=== PATIENT | female | born 1990 | race American Indian/Alaskan Native ===

== ENCOUNTER 2017-08-08 21:21 | Emergency (ER) | payer SELFPAY ==
--- NOTE | 2017-08-09 03:41 | Emergency Department Report ---
ED Lower Extremity HPI - General Chief Complaint: Extremity Injury, Lower Stated Complaint: LT FOOT INJURY Time Seen by Provider: 08/09/17 03:40 Source: patient Mode of arrival: Ambulatory Limitations: No Limitations - History of Present Illness Initial Comments: Patient here on triage note it said that patient was complaining of left hammertoe. Patient says she did not complain of hammertoe she is just having severe pain for over 2 months beneath her left big toe and sometimes on the lateral big toe. She said the pain is been on and off for since she wear shoes pain is 8 out of 10 and has been taking [id number] pain medication and does not help. Patient denies any redness or injury to left foot. She said the pain feels like burning pain. She has not followed up with her doctor regarding this issue which has been going on for 2 months. She denies any numbness or tingling to her extremities. MD Complaint: other (patient complaining of left foot pain beneath her left great toe and along side her left great toe) Onset/Timin -: month(s) Injury: Foot: Left (pain) Type of Injury: unknown Place: home Severity: severe Severity scale (0 -10): 8 Improves With: immobilization, rest Worsens With: weight bearing Context: other (unknown) Associated Symptoms: ambulatory. denies: snap/pop sensation, swelling, numbness , tingling Treatments Prior to Arrival: NSAIDS - Related Data Previous Rx's Medication Instructions Recorded Last Taken Type HYDROcodone/APAP 5-325 [[place] 1 each PO Q6HR PRN #15 tablet 02/20/14 Unknown Rx 5/325 mg] Ibuprofen [Motrin] 600 mg PO Q8H PRN #50 tablet 02/20/14 Unknown Rx LORazepam [Ativan] 1 mg PO QHS PRN #15 tab 02/20/14 Unknown Rx Naproxen [Naprosyn] 500 mg PO BID PRN 6 Days #12 tablet 08/09/17 Unknown Rx Allergies Allergy/AdvReac Type Severity Reaction Status Date / Time No Known Allergies Allergy Verified 07/20/13 02:44 ED Review of Systems ROS: Stated complaint: LT FOOT INJURY Other details as noted in HPI Comment: All other systems reviewed and negative Constitutional: no symptoms reported Respiratory: no symptoms reported Cardiovascular: denies: chest pain, palpitations, dyspnea on exertion, edema, syncope Gastrointestinal: denies: abdominal pain, nausea, vomiting Musculoskeletal: arthralgia. 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 - Family History Family history: no significant - Social History Smoking Status: Never Smoker Substance Use Type: Alcohol - Medications Home Medications: Home Medications Medication Instructions Recorded Confirmed Last Taken Type HYDROcodone/APAP 5-325 [[place] 1 each PO Q6HR PRN #15 tablet 02/20/14 Unknown Rx 5/325 mg] Ibuprofen [Motrin] 600 mg PO Q8H PRN #50 tablet 02/20/14 Unknown Rx LORazepam [Ativan] 1 mg PO QHS PRN #15 tab 02/20/14 Unknown Rx Naproxen [Naprosyn] 500 mg PO BID PRN 6 Days #12 tablet 08/09/17 Unknown Rx ED Physical Exam - General Limitations: No Limitations General appearance: alert, in no apparent distress - Head Head exam: Present: atraumatic, normocephalic, normal inspection - Eye Eye exam: Present: normal appearance, PERRL, EOMI Pupils: Present: normal accommodation - ENT ENT exam: Present: normal exam, normal orophraynx - Neck Neck exam: Present: normal inspection, full ROM, other (no C-spine tenderness). Absent: tenderness, meningismus, lymphadenopathy - Respiratory Respiratory exam: Present: normal lung sounds bilaterally. Absent: respiratory distress, chest wall tenderness, accessory muscle use - Cardiovascular Cardiovascular Exam: Present: regular rate, normal rhythm, normal heart sounds. Absent: systolic murmur, diastolic murmur - GI/Abdominal GI/Abdominal exam: Present: soft, normal bowel sounds. Absent: distended, tenderness, guarding, rebound, rigid, organomegaly, mass, bruit, pulsatile mass , hernia - Extremities Exam Extremities exam: Present: normal inspection, full ROM, normal capillary refill , other (no clubbing, cyanosis or edema. Patient with good color, sensation, temperature and movement to all extremity to include feet. No deformity noted to feet. +5/5 movement all extremities. No joint deformity, crepitus, effusion or ecchymotic area. Capillary refill is less than 3 seconds to all extremities. Patient able to ambulate without any difficulties. Nontender to palpate to all extremities. Pulses are 2+ and bounding). Absent: tenderness, pedal edema, joint swelling, calf tenderness - Back Exam Back exam: Present: normal inspection, full ROM. Absent: tenderness, CVA tenderness (R), CVA tenderness (L), muscle spasm, paraspinal tenderness, vertebral tenderness, rash noted - Neurological Exam Neurological exam: Present: alert, oriented X3, normal gait, reflexes normal. Absent: motor sensory deficit - Psychiatric Psychiatric exam: Present: normal affect, normal mood - Skin Skin exam: Present: warm, dry, intact, normal color. Absent: rash ED Course Vital Signs 08/08/17 22:39 Temperature 98.2 F Pulse Rate 64 Respiratory 18 Rate Blood Pressure 141/78 O2 Sat by Pulse 100 Oximetry - Reevaluation(s) Reevaluation #1: 08/09/17 04:32 Patient given Motrin 800 mg in emergency room for foot pain ED Lower Extremity MDM - Medical Decision Making ED Course: Patient came to the emergency room report that she's been having left foot pain that located under her left great toe and along side her left great toe and the pain is burning and this is been going on for 2 months on and off. She said it's worse when she wear her shoes. Patient able to ambulate without any difficulties physical findings for normal exam to extremities. Patient with good color, sensation, movement and temperature to all extremities. Follows criteria place patient no risks for DVT. She has no swelling, shortness of breath, chest pain, calf pain, history of blood clots in her family or personally, no recent long distant travel by airplane or car and she is not on any control. Thus the patient my physical findings result and I told her that she needs to follow up with a career transition specialist for chronic foot pain without any injuries. She discharged home with prescription for naproxen. Critical care attestation.: If time is entered above; I have spent that time in minutes in the direct care of this critically ill patient, excluding procedure time. ED Disposition Clinical Impression: Foot pain, left Disposition: DC-01 TO HOME OR SELFCARE Is pt being admited?: No Does the pt Need Aspirin: No Condition: Stable Instructions: Arthralgia (ED) Additional Instructions: Please follow up with primary care as recommended Increase fluid intake Take medication as prescribed . Easy diet consists of banana, applesauce ,Rice and toast. 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
[2017-08-09] MEDS ORDERED: MOTRIN PO ONE (03:52)
[2017-08-09 04:45] VITALS: BP 131/78
== END 2017-08-09 04:58 | disposition home or self-care (01) ==
LOC: ED 21:21
DX: M79.672 Pain in left foot (principal)
CPT/HCPCS: 99282

== ENCOUNTER 2022-03-13 15:45 | Outpatient (CLI) | payer MEDICAID ==
[2022-03-13 16:32] VITALS: BP 125/79
[2022-03-13] MEDS ORDERED: LACTATED RINGERS 500 ML IV ONE (19:50)
== END 2022-03-13 19:00 | disposition home or self-care (01) ==
LOC: TRG 15:45 → APU 15:47 → TRG 19:00
PROVIDERS: ATTEND Obstetrics & Gynecology
DX: O26.893 Other specified pregnancy related conditions, third trimester (principal); R10.9 Unspecified abdominal pain; M54.59 Other low back pain; Z3A.32 32 weeks gestation of pregnancy
CPT/HCPCS: 59025

== ENCOUNTER 2022-04-19 10:42 | Outpatient (CLI) | payer MEDICAID ==
[2022-04-19 11:05] VITALS: BP 125/84
--- NOTE | 2022-04-19 13:36 | Event Note ---
Date: 04/19/22 patient scheduled for IOL d/t IUGR however d/t lack of staff patient will not be able to begin IOL as scheduled, she presented to tesing. BPP 101, TY 12. cervix 1-/-3. Will allow home with [facility] instrn's, she's rescheduled for IOL in am per Jason Potter RN
--- NOTE | 2022-04-19 13:50 | Ultrasound Report ---
ULTRASOUND OBSTETRIC LIMITED ULTRASOUND BIOPHYSICAL PROFILE INDICATION / CLINICAL INFORMATION: well being. Clinical Gestational Age (GA) in weeks, days: 38, 1 TECHNIQUE: Transabdominal. COMPARISON: None available. FINDINGS: BREATHING MOVEMENT = 2 GROSS BODY MOVEMENT = 2 TONE = 2 QUALITATIVE AMNIOTIC FLUID VOLUME = 2 TOTAL BIOPHYSICAL SCORE = 8/8 HEART RATE (beats per minute): 144 AMNIOTIC FLUID INDEX (cm) = 12.3 (normal = 7-24 cm) PRESENTATION: Cephalic. ADDITIONAL FINDINGS: There is a posterior placenta grade 1 IMPRESSION: 1. Biophysical Score = 8/8 Signer Name: Damon Luna DO Signed: 04/19/2022 1:46 PM Workstation Name: [id number]
== END 2022-04-19 13:40 | disposition home or self-care (01) ==
LOC: TRG 10:42 → APU 10:43 → TRG 13:40
PROVIDERS: ATTEND Obstetrics & Gynecology
DX: Z34.93 Encounter for supervision of normal pregnancy, unspecified, third trimester (principal); Z3A.38 38 weeks gestation of pregnancy
CPT/HCPCS: 59025; 76815; 76819

== ENCOUNTER 2022-04-20 08:26 | Inpatient (IN) | payer MEDICAID ==
[2022-04-20] MEDS ORDERED: CARBOPROST TROMETHAMINE 250 MCG/1 ML INJ IM PRN (11:09)
[2022-04-20] MEDS ORDERED: ACETAMINOPHEN 325 MG TAB PO PRN (11:09)
[2022-04-20] MEDS ORDERED: miSOPROStol 200 MCG TAB PR PRN (11:09)
[2022-04-20] MEDS ORDERED: TERBUTALINE 1 MG/1 ML INJ SUB-Q PRN (11:09)
[2022-04-20] MEDS ORDERED: LOPERAMIDE 2 MG CAP PO PRN (11:09)
[2022-04-20] MEDS ORDERED: OXYTOCIN 10 UNIT/1 ML INJ IM PRN (11:09)
[2022-04-20] MEDS ORDERED: BUTORPHANOL 2 MG/1 ML INJ IV PRN ×2 (11:09)
[2022-04-20] MEDS ORDERED: MINERAL OIL 30 ML ORAL LIQD PO PRN (11:09)
[2022-04-20] MEDS ORDERED: ePHEDrine SULFATE 50 MG/1 ML INJ IV PRN (11:09)
[2022-04-20] MEDS: LACTATED RINGERS 1,000 ML IV SCH (12:00)
[2022-04-20] MEDS ORDERED: LIDOCAINE (2%) 20 MG/1 ML VIAL 20 ML MDV INFILTRATI ONE (12:00)
[2022-04-20] MEDS ORDERED: OXYTOCIN DRIP 30 UNITS/500 ML BAG IV SCH (12:00)
[2022-04-20] MEDS: OXYTOCIN DRIP 30 UNITS/500 ML BAG IV SCH (12:00)
[2022-04-20 16:12] LABS: Hematocrit 34.6 % (30.3-42.9); Hemoglobin 11.7 gm/dl (10.1-14.3); Mean Corpuscular HGB Conc 34 % (30-34); Mean Corpuscular Volume 89 fl (79-97); Platelet Count 203 K/mm3 (140-440); Red Cell Distribution Width 15.5 % (13.2-15.2)
--- NOTE | 2022-04-20 16:26 | History and Physical Report ---
History of Present Illness Date of examination: 04/20/22 Date of admission: 04/20/22 08:26 History of present illness: Patient admitted for labor induction for intrauterine growth restriction with estimated weight in the 3 percentile Menstrual History Regularity: regular Menses every: 28 days Duration: 6 LMP: 07/23/2021 LMP reliability: month known LMP character: normal test type: urine test Date: 08/25/2021 BC at conception: none Planned ? yes EDC Calculations LMP: 04/29/2022 EDC Confirmation: 04/29/2022 Past History : 4 Term Births: 3 Premature Births: 0 Living Children: 3 Para: 3 Mult. Births: 0 Prev : 0 Prev. attempt? 0 Aborta: 0 Elect. Ab: 0 Spont. Ab: 0 Ectopics: 0 # 1 Delivery date: 08/03/2009 Weeks Gestation: 29 Delivery type: Hours of labor: ? Anesthesia type: epidural Delivery location: [facility] Sex: Female weight: 6-? Name: Jayme # 2 Delivery date: 08/03/2010 Weeks Gestation: 28 Delivery type: Hours of labor: 6 Anesthesia type: IV Delivery location: [facility] Infant Sex: Female weight: ? Name: Sammie # 3 Delivery date: 10/07/2011 Weeks Gestation: ?term Delivery type: Hours of labor: ? Anesthesia type: none Delivery location: [facility] Sex: Male weight: ? Name: Ulises Past Medical History: Anxiety Past Surgical History: club feet repaired Family History Summary: Mother - Has Family History of Lung Cancer - mgf . non smoker - Entered On: 04/22/2017 Mother - Has Family History Breast Cancer - mat aunt age 56, dx age 55. - Entered On: 04/22/2017 Mother - Has Family History of Hypertension - mother - Entered On: 04/22/2017 Social History: Patient is single Marital Status: Sinlge Children: 3 Smoking History: Patient has never smoked. 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 Infection History Hx of STD: chlamydia HIV Risk Eval: low risk Hepatitis B Risk Eval: low risk Personal hx. of genital herpes: no Genetic History Congenital Heart Defect: Mom: no Dad: no Reid Disease: Mom: no Dad: no Thalassemia Mom: no Dad: no Neural Tube Defect Mom: no Dad: no Down's Syndrome Mom: no Dad: no Abrahan-Sachs Mom: no Dad: no Sickle Cell Disease/Trait Mom: no Dad: no Hemophilia Mom: no Dad: no Muscular Dystrophy Mom: no Dad: no Cystic Fibrosis Mom: no Dad: no Reynolds Chorea Mom: no Dad: no Mental Retardation Mom: no Dad: no Fragile X Mom: no Dad: no Other Genetic/Chromosomal Disorder Mom: no Dad: no Child w/other defect Mom: no Dad: no Enviromental Exposures Xray Exposure: no Medication, drug, or alcohol use since LMP: no Exposure to Cat Liter: no Current Allergies (reviewed today): No known allergies Past History Past Medical History: other (SEE HPI) Past Surgical History: Other (SEE HPI) Social history: full code, other (SEE HPI) Family history: other (SEE HPI) Medications and Allergies Allergies Allergy/AdvReac Type Severity Reaction Status Date / Time No Known Allergies Allergy Verified 07/20/13 02:44 Home Medications Medication Instructions Recorded Confirmed Last Taken Type HYDROcodone/APAP 5-325 [[place] 1 each PO Q6HR PRN #15 tablet 02/20/14 Unknown Rx 5/325 mg] Ibuprofen [Motrin] 600 mg PO Q8H PRN #50 tablet 02/20/14 Unknown Rx LORazepam [Ativan] 1 mg PO QHS PRN #15 tab 02/20/14 Unknown Rx Naproxen [Naprosyn] 500 mg PO BID PRN 6 Days #12 tablet 08/09/17 Unknown Rx Active Meds: Active Medications Acetaminophen (Acetaminophen 325 Mg Tab) 650 mg PO Q4H PRN PRN Reason: Pain, Mild (1-3) Butorphanol Tartrate (Butorphanol 2 Mg/1 Ml Inj) 1 mg IV Q2H PRN PRN Reason: Pain, Moderate(4-6) LABOR PAIN Butorphanol Tartrate (Butorphanol 2 Mg/1 Ml Inj) 2 mg IV Q2H PRN PRN Reason: Pain , Severe (7-10) Carboprost Tromethamine (Carboprost Tromethamine 250 Mcg/1 Ml Inj) 250 mcg IM ONCE PRN PRN Reason: Uterine Bleeding Ephedrine Sulfate (Ephedrine Sulfate 50 Mg/1 Ml Inj) 10 mg IV Q2M PRN PRN Reason: Hypotension Oxytocin/Sodium Chloride (Pitocin/Ns 30 Unit/500ml) 30 units in 500 mls @ 4 mls/hr IV TITR JENNIFER; Protocol Last Admin: 04/20/22 12:00 Dose: 4 mls/hr, 4 mls/hr Lactated Ringer's (Lactated Ringers) 1,000 mls @ 125 mls/hr IV DIRECT JENNIFER Last Admin: 04/20/22 12:00 Dose: 125 mls/hr Oxytocin/Sodium Chloride (Pitocin/Ns 30 Unit/500ml) 30 units in 500 mls @ 40 mls/hr IV TITR JNENIFER Loperamide HCl (Loperamide 2 Mg Cap) 2 mg PO ONCE PRN PRN Reason: give with Hemabate Mineral Oil (Mineral Oil 30 Ml Oral Liqd) 30 ml PO QHS PRN PRN Reason: Constipation Misoprostol (Misoprostol 200 Mcg Tab) 800 mcg TN ONCE PRN PRN Reason: Uterine Bleeding Oxytocin (Oxytocin 10 Unit/1 Ml Inj) 10 unit IM ONCE PRN PRN Reason: Uterine Bleeding Terbutaline Sulfate (Terbutaline 1 Mg/1 Ml Inj) 0.25 mg SUB-Q ONCE PRN PRN Reason: Hyperstimulation/Hypertonicity Review of Systems All systems: negative Exam - Constitutional Vitals: Temp Pulse Resp BP Pulse Ox 96 H 98 04/20/22 16:22 04/20/22 16:22 General appearance: Present: no acute distress - Respiratory Respiratory effort: normal - Extremities Extremities: no ischemia Extremity abnormal: edema - Abdominal General gastrointestinal: Present: soft, non-tender, other (Gravid) Female genitourinary: Present: normal - Rectal Rectal Exam: deferred - Integumentary Integumentary: Present: clear, warm, dry - Musculoskeletal Musculoskeletal: gait normal, strength equal bilaterally - Psychiatric Psychiatric: appropriate mood/affect, intact judgment & insight - Neurologic Neurologic: moves all extremities Results - Labs CBC & Chem 7: 04/20/22 15:13 Labs: Abnormal lab results 04/20/22 Range/Units 15:13 RDW 15.5 H (13.2-15.2) % Assessment and Plan - Patient Problems (1) with 38 completed weeks gestation Current Visit: Yes Status: Acute (2) Intrauterine growth restriction (IUGR) affecting care of mother, third trimester, single gestation Current Visit: Yes Status: Acute Plan to address problem: Patient was admitted for labor induction. We will start Pitocin. Discussed with the patient the nature of serial induction. Questions answered. Discussed the risks of and. indications for operative intervention. Will continue induction until this evening. At that time reassess if labor has not started we'll stop induction. We'll allow to eat and possibly repeat Cervidil this evening. If labor is progressing or other indications to continue induction we'll do so at that time. (3) Carrier of group B Streptococcus Current Visit: Yes Status: Acute Plan to address problem: Will give antibiotic prophylaxis when in labor (4) Anxiety Current Visit: No Status: Acute
[2022-04-20] MEDS ORDERED: AMPICILLIN/NS 2 GM/100 ML 2 GM/100 ML BAG IV ONE ×2 (16:30→17:00)
--- NOTE | 2022-04-20 21:07 | Event Note ---
Date: 04/20/22 Patient without change in cervix per RN. Pitocin was stopped and the patient was allowed to eat will place Cervidil overnight. Plan discussed with the patient who agrees in room start Pitocin in the morning. We will continue continuous monitoring.
[2022-04-20] MEDS: AMPICILLIN/NS 1 GM/50 ML 1 GM/50 ML BAG IV SCH (21:19)
[2022-04-20] MEDS ORDERED: DINOPROSTONE 10 MG VAG SUPP VG ONE (22:00)
[2022-04-21] MEDS: AMPICILLIN/NS 1 GM/50 ML 1 GM/50 ML BAG IV SCH ×5 (01:46→21:55)
[2022-04-21] MEDS: LACTATED RINGERS 1,000 ML IV SCH ×2 (07:57→21:52)
--- NOTE | 2022-04-21 10:44 | Progress Note ---
Assessment and Plan - Patient Problems (1) Chronic hypertension affecting Current Visit: Yes Status: Acute Plan to address problem: Patient with Cervidil placed overnight. We will remove this morning allowed to have breakfast and restart the Pitocin. Will continue induction until this evening. At that time reassess if labor has not started we'll stop induction. We'll allow to eat and possibly repeat Cervidil this evening. If labor is progressing or other indications to continue induction we'll do so at that time. (2) with 38 completed weeks gestation Current Visit: Yes Status: Acute Subjective Date of service: 04/21/22 Principal diagnosis: Patient states she is feeling fine complain of some irregular contractions Objective - Constitutional Vitals: Vital Signs - 12hr 04/20/22 04/20/22 04/20/22 22:44 22:49 22:54 Temperature Pulse Rate 90 98 H 87 Respiratory Rate Blood Pressure O2 Sat by Pulse 98 99 99 Oximetry O2 Sat by Pulse Oximetry [ Bilateral Throughout] 04/20/22 04/20/22 04/20/22 22:59 23:09 23:14 Temperature Pulse Rate 86 64 89 Respiratory Rate Blood Pressure O2 Sat by Pulse 99 87 97 Oximetry O2 Sat by Pulse Oximetry [ Bilateral Throughout] 04/20/22 04/20/22 04/20/22 23:19 23:24 23:29 Temperature Pulse Rate 85 83 82 Respiratory Rate Blood Pressure O2 Sat by Pulse 98 97 98 Oximetry O2 Sat by Pulse Oximetry [ Bilateral Throughout] 04/20/22 04/20/22 04/20/22 23:34 23:39 23:44 Temperature Pulse Rate 86 84 90 Respiratory Rate Blood Pressure O2 Sat by Pulse 98 97 98 Oximetry O2 Sat by Pulse Oximetry [ Bilateral Throughout] 04/20/22 04/20/22 04/20/22 23:49 23:54 23:59 Temperature Pulse Rate 85 86 97 H Respiratory Rate Blood Pressure O2 Sat by Pulse 97 97 96 Oximetry O2 Sat by Pulse Oximetry [ Bilateral Throughout] 04/21/22 04/21/22 04/21/22 00:04 00:09 00:14 Temperature Pulse Rate 93 H 82 82 Respiratory Rate Blood Pressure O2 Sat by Pulse 98 97 96 Oximetry O2 Sat by Pulse Oximetry [ Bilateral Throughout] 04/21/22 04/21/22 04/21/22 00:19 00:24 00:29 Temperature Pulse Rate 84 92 H 79 Respiratory Rate Blood Pressure O2 Sat by Pulse 96 96 96 Oximetry O2 Sat by Pulse Oximetry [ Bilateral Throughout] 04/21/22 04/21/22 04/21/22 00:34 00:39 00:44 Temperature Pulse Rate 85 82 85 Respiratory Rate Blood Pressure O2 Sat by Pulse 97 97 96 Oximetry O2 Sat by Pulse Oximetry [ Bilateral Throughout] 04/21/22 04/21/22 04/21/22 00:49 00:54 00:59 Temperature Pulse Rate 91 H 89 84 Respiratory Rate Blood Pressure O2 Sat by Pulse 96 97 97 Oximetry O2 Sat by Pulse Oximetry [ Bilateral Throughout] 04/21/22 04/21/22 04/21/22 01:04 01:09 01:14 Temperature Pulse Rate 85 83 83 Respiratory Rate Blood Pressure O2 Sat by Pulse 97 97 97 Oximetry O2 Sat by Pulse Oximetry [ Bilateral Throughout] 04/21/22 04/21/22 04/21/22 01:19 01:24 01:29 Temperature Pulse Rate 85 87 84 Respiratory Rate Blood Pressure O2 Sat by Pulse 96 96 96 Oximetry O2 Sat by Pulse Oximetry [ Bilateral Throughout] 04/21/22 04/21/22 04/21/22 01:34 01:39 01:44 Temperature Pulse Rate 82 83 93 H Respiratory Rate Blood Pressure O2 Sat by Pulse 97 97 98 Oximetry O2 Sat by Pulse Oximetry [ Bilateral Throughout] 04/21/22 04/21/22 04/21/22 02:20 02:25 02:30 Temperature Pulse Rate 87 81 82 Respiratory Rate Blood Pressure O2 Sat by Pulse 100 100 99 Oximetry O2 Sat by Pulse Oximetry [ Bilateral Throughout] 04/21/22 04/21/22 04/21/22 02:35 02:40 02:45 Temperature Pulse Rate 80 79 83 Respiratory Rate Blood Pressure O2 Sat by Pulse 100 99 99 Oximetry O2 Sat by Pulse Oximetry [ Bilateral Throughout] 04/21/22 04/21/22 04/21/22 02:50 02:55 03:00 Temperature Pulse Rate 82 86 88 Respiratory Rate Blood Pressure O2 Sat by Pulse 97 97 98 Oximetry O2 Sat by Pulse Oximetry [ Bilateral Throughout] 04/21/22 04/21/22 04/21/22 03:05 03:10 03:15 Temperature Pulse Rate 90 86 83 Respiratory Rate Blood Pressure O2 Sat by Pulse 98 97 98 Oximetry O2 Sat by Pulse Oximetry [ Bilateral Throughout] 04/21/22 04/21/22 04/21/22 03:20 03:25 03:30 Temperature Pulse Rate 91 H 86 88 Respiratory Rate Blood Pressure O2 Sat by Pulse 97 97 97 Oximetry O2 Sat by Pulse Oximetry [ Bilateral Throughout] 04/21/22 04/21/22 04/21/22 03:35 03:40 03:45 Temperature Pulse Rate 87 90 89 Respiratory Rate Blood Pressure O2 Sat by Pulse 97 97 97 Oximetry O2 Sat by Pulse Oximetry [ Bilateral Throughout] 04/21/22 04/21/22 04/21/22 03:50 03:55 04:00 Temperature Pulse Rate 89 100 H 93 H Respiratory Rate Blood Pressure O2 Sat by Pulse 97 98 98 Oximetry O2 Sat by Pulse Oximetry [ Bilateral Throughout] 04/21/22 04/21/22 04/21/22 04:05 04:13 04:18 Temperature Pulse Rate 92 H 79 79 Respiratory Rate Blood Pressure O2 Sat by Pulse 98 95 100 Oximetry O2 Sat by Pulse Oximetry [ Bilateral Throughout] 04/21/22 04/21/22 04/21/22 04:23 04:28 04:33 Temperature Pulse Rate 77 82 78 Respiratory Rate Blood Pressure O2 Sat by Pulse 99 98 98 Oximetry O2 Sat by Pulse Oximetry [ Bilateral Throughout] 04/21/22 04/21/22 04/21/22 04:38 04:43 04:48 Temperature Pulse Rate 81 82 89 Respiratory Rate Blood Pressure O2 Sat by Pulse 98 98 98 Oximetry O2 Sat by Pulse Oximetry [ Bilateral Throughout] 04/21/22 04/21/22 04/21/22 04:53 04:58 05:03 Temperature Pulse Rate 84 80 82 Respiratory Rate Blood Pressure O2 Sat by Pulse 97 97 97 Oximetry O2 Sat by Pulse Oximetry [ Bilateral Throughout] 04/21/22 04/21/22 04/21/22 05:08 05:13 05:18 Temperature Pulse Rate 83 78 90 Respiratory Rate Blood Pressure O2 Sat by Pulse 97 98 98 Oximetry O2 Sat by Pulse Oximetry [ Bilateral Throughout] 04/21/22 04/21/22 04/21/22 05:30 05:35 05:40 Temperature Pulse Rate 91 H 78 82 Respiratory Rate Blood Pressure O2 Sat by Pulse 100 100 97 Oximetry O2 Sat by Pulse Oximetry [ Bilateral Throughout] 04/21/22 04/21/22 04/21/22 05:45 05:50 05:55 Temperature Pulse Rate 78 80 87 Respiratory Rate Blood Pressure O2 Sat by Pulse 97 97 97 Oximetry O2 Sat by Pulse Oximetry [ Bilateral Throughout] 04/21/22 04/21/22 04/21/22 06:00 06:05 06:10 Temperature Pulse Rate 80 83 85 Respiratory Rate Blood Pressure O2 Sat by Pulse 97 97 97 Oximetry O2 Sat by Pulse Oximetry [ Bilateral Throughout] 04/21/22 04/21/22 04/21/22 06:15 06:20 06:25 Temperature Pulse Rate 78 84 94 H Respiratory Rate Blood Pressure O2 Sat by Pulse 97 99 99 Oximetry O2 Sat by Pulse Oximetry [ Bilateral Throughout] 04/21/22 04/21/22 04/21/22 06:30 06:35 06:43 Temperature Pulse Rate 93 H 94 H 93 H Respiratory Rate Blood Pressure O2 Sat by Pulse 98 97 100 Oximetry O2 Sat by Pulse Oximetry [ Bilateral Throughout] 04/21/22 04/21/22 04/21/22 06:48 06:53 06:58 Temperature Pulse Rate 88 77 78 Respiratory Rate Blood Pressure O2 Sat by Pulse 100 99 99 Oximetry O2 Sat by Pulse Oximetry [ Bilateral Throughout] 04/21/22 04/21/22 04/21/22 07:03 07:08 07:13 Temperature Pulse Rate 79 90 91 H Respiratory Rate Blood Pressure O2 Sat by Pulse 99 100 99 Oximetry O2 Sat by Pulse Oximetry [ Bilateral Throughout] 04/21/22 04/21/22 04/21/22 07:16 07:17 07:18 Temperature 98.4 F Pulse Rate 78 Respiratory 19 Rate Blood Pressure O2 Sat by Pulse 97 Oximetry O2 Sat by Pulse 98 Oximetry [ Bilateral Throughout] 04/21/22 04/21/22 04/21/22 07:23 07:28 07:33 Temperature Pulse Rate 82 89 90 Respiratory Rate Blood Pressure O2 Sat by Pulse 98 97 97 Oximetry O2 Sat by Pulse Oximetry [ Bilateral Throughout] 04/21/22 04/21/22 04/21/22 07:38 07:43 07:48 Temperature Pulse Rate 84 95 H 87 Respiratory Rate Blood Pressure O2 Sat by Pulse 98 98 98 Oximetry O2 Sat by Pulse Oximetry [ Bilateral Throughout] 04/21/22 04/21/22 04/21/22 07:58 08:03 08:08 Temperature Pulse Rate 89 89 89 Respiratory Rate Blood Pressure 121/59 O2 Sat by Pulse 100 98 97 Oximetry O2 Sat by Pulse Oximetry [ Bilateral Throughout] 04/21/22 04/21/22 04/21/22 08:13 08:18 08:23 Temperature Pulse Rate 88 93 H 92 H Respiratory Rate Blood Pressure O2 Sat by Pulse 99 98 98 Oximetry O2 Sat by Pulse Oximetry [ Bilateral Throughout] 04/21/22 04/21/22 04/21/22 08:28 08:33 08:38 Temperature Pulse Rate 95 H 94 H 89 Respiratory Rate Blood Pressure O2 Sat by Pulse 97 97 97 Oximetry O2 Sat by Pulse Oximetry [ Bilateral Throughout] 04/21/22 04/21/22 04/21/22 08:43 08:48 08:53 Temperature Pulse Rate 90 98 H 94 H Respiratory Rate Blood Pressure O2 Sat by Pulse 97 96 96 Oximetry O2 Sat by Pulse Oximetry [ Bilateral Throughout] 04/21/22 04/21/22 04/21/22 08:58 09:03 09:08 Temperature Pulse Rate 95 H 92 H 101 H Respiratory Rate Blood Pressure O2 Sat by Pulse 97 97 100 Oximetry O2 Sat by Pulse Oximetry [ Bilateral Throughout] 04/21/22 04/21/22 04/21/22 09:25 09:30 09:35 Temperature Pulse Rate 97 H 104 H 92 H Respiratory Rate Blood Pressure O2 Sat by Pulse 100 100 99 Oximetry O2 Sat by Pulse Oximetry [ Bilateral Throughout] 04/21/22 04/21/22 04/21/22 09:40 09:45 09:50 Temperature Pulse Rate 95 H 88 93 H Respiratory Rate Blood Pressure O2 Sat by Pulse 99 100 100 Oximetry O2 Sat by Pulse Oximetry [ Bilateral Throughout] 04/21/22 04/21/22 04/21/22 09:55 10:00 10:05 Temperature Pulse Rate 98 H 91 H 98 H Respiratory Rate Blood Pressure 112/64 O2 Sat by Pulse 99 100 99 Oximetry O2 Sat by Pulse Oximetry [ Bilateral Throughout] 04/21/22 04/21/22 04/21/22 10:10 10:15 10:20 Temperature Pulse Rate 92 H 93 H 92 H Respiratory Rate Blood Pressure O2 Sat by Pulse 99 100 99 Oximetry O2 Sat by Pulse Oximetry [ Bilateral Throughout] 04/21/22 04/21/22 10:32 10:37 Temperature Pulse Rate 112 H 91 H Respiratory Rate Blood Pressure O2 Sat by Pulse 98 98 Oximetry O2 Sat by Pulse Oximetry [ Bilateral Throughout] General appearance: Present: no acute distress - Respiratory Respiratory effort: normal - Breasts Breasts: deferred - Cardiovascular Rhythm: regular Extremities: no ischemia Extremity abnormal: edema (Mild) - Gastrointestinal General gastrointestinal: Present: soft - Genitourinary Female genitourinary: deferred, other (Cervidil in place) - Integumentary Integumentary: clear, warm, dry - Labs CBC & Chem 7: 04/20/22 15:13 Labs: Abnormal lab results 04/20/22 Range/Units 15:13 RDW 15.5 H (13.2-15.2) % Medications & Allergies - Medications Allergies/Adverse Reactions: Allergies No Known Allergies Allergy (Verified 07/20/13 02:44) Home Medications: Home Medications Medication Instructions Recorded Confirmed Last Taken Type HYDROcodone/APAP 5-325 [[place] 1 each PO Q6HR PRN #15 tablet 02/20/14 Unknown Rx 5/325 mg] Ibuprofen [Motrin] 600 mg PO Q8H PRN #50 tablet 02/20/14 Unknown Rx LORazepam [Ativan] 1 mg PO QHS PRN #15 tab 02/20/14 Unknown Rx Naproxen [Naprosyn] 500 mg PO BID PRN 6 Days #12 tablet 08/09/17 Unknown Rx Active Medications: Generic Name Dose Route Start Last Admin Trade Name Freq PRN Reason Stop Dose Admin Acetaminophen 650 mg 04/20/22 11:09 Acetaminophen 325 Mg Tab PO Q4H PRN Pain, Mild (1-3) Butorphanol Tartrate 1 mg 04/20/22 11:09 Butorphanol 2 Mg/1 Ml Inj IV Q2H PRN Pain, Moderate(4-6) LABOR PAIN Butorphanol Tartrate 2 mg 04/20/22 11:09 Butorphanol 2 Mg/1 Ml Inj IV Q2H PRN Pain , Severe (7-10) Carboprost Tromethamine 250 mcg 04/20/22 11:09 Carboprost Tromethamine 250 Mcg/1 Ml Inj IM ONCE PRN Uterine Bleeding Ephedrine Sulfate 10 mg 04/20/22 11:09 Ephedrine Sulfate 50 Mg/1 Ml Inj IV Q2M PRN Hypotension Oxytocin/Sodium Chloride 30 units in 500 mls @ 4 mls/hr 04/20/22 12:00 04/20 14:00 Pitocin/Ns 30 Unit/500ml IV 20 mls/hr TITR JENNIFER 20 mls/hr Titration Protocol Lactated Ringer's 1,000 mls @ 125 mls/hr 04/20/22 11:15 04/21/22 07:57 Lactated Ringers IV 125 mls/hr DIRECT JENNIFER Administration Ampicillin Sodium 1 gm in 50 mls @ 100 mls/hr 04/20/22 18:00 04/21/22 06:12 Ampicillin/Ns 1 Gm/50 Ml IV 100 mls/hr Q6HR JENNIFER Administration Protocol Oxytocin/Sodium Chloride 30 units in 500 mls @ 40 mls/hr 04/21/22 11:00 Pitocin/Ns 30 Unit/500ml IV TITR JENNIFER Loperamide HCl 2 mg 04/20/22 11:09 Loperamide 2 Mg Cap PO ONCE PRN give with Hemabate Mineral Oil 30 ml 04/20/22 11:09 Mineral Oil 30 Ml Oral Liqd PO QHS PRN Constipation Misoprostol 800 mcg 04/20/22 11:09 Misoprostol 200 Mcg Tab MN ONCE PRN Uterine Bleeding Oxytocin 10 unit 04/20/22 11:09 Oxytocin 10 Unit/1 Ml Inj IM ONCE PRN Uterine Bleeding Terbutaline Sulfate 0.25 mg 04/20/22 11:09 Terbutaline 1 Mg/1 Ml Inj SUB-Q ONCE PRN Hyperstimulation/Hypertonicity
[2022-04-21] MEDS ORDERED: OXYTOCIN DRIP 30 UNITS/500 ML BAG IV SCH (11:00)
[2022-04-21] MEDS: OXYTOCIN DRIP 30 UNITS/500 ML BAG IV SCH (11:09)
--- NOTE | 2022-04-21 14:04 | Event Note ---
Date: 04/21/22 Call to RN reports Pitocin at 16mu/min tracing reviewed. We will continue to titrate Pitocin per protocol.
--- NOTE | 2022-04-21 18:17 | Event Note ---
Date: 04/21/22 Received call from RN no change in cervix after max pitocin. Patient desire to eat. Will stop pitocin, allow to eat
[2022-04-21] MEDS ORDERED: DINOPROSTONE 10 MG VAG SUPP VG ONE (22:00)
[2022-04-22] MEDS: AMPICILLIN/NS 1 GM/50 ML 1 GM/50 ML BAG IV SCH ×3 (04:35→16:06)
--- NOTE | 2022-04-22 07:33 | Progress Note ---
Assessment and Plan A: 31 y.o. @ 39 wks, IOL d/t IUGR. - Patient Problems (1) Carrier of group B Streptococcus Current Visit: Yes Status: Acute Plan to address problem: Antibiotics while in labor. (2) Intrauterine growth restriction (IUGR) affecting care of mother, third trimester, single gestation Current Visit: Yes Status: Acute Plan to address problem: Continue to monitor status through EFM. (3) with 38 completed weeks gestation Current Visit: Yes Status: Acute Plan to address problem: Continue with IOL. Cervidil placed at 0500am. Will reassess cervix at noon. Subjective - Subjective Date of service: 04/22/22 Principal diagnosis: IUP @ 39 wks, IOL d/t IUGR Interval history: Pt doing well. States that she is feeling some contractions but not enough to need pain medication. Patient reports: movement normal, contractions Objective - Vital Signs Vital Signs: Vital Signs - 12hr 04/21/22 04/21/22 04/21/22 19:33 19:38 19:43 Temperature Pulse Rate 98 H 84 88 Respiratory Rate Blood Pressure O2 Sat by Pulse 98 97 99 Oximetry O2 Sat by Pulse Oximetry [ Bilateral Throughout] 04/21/22 04/21/22 04/21/22 19:48 19:53 19:58 Temperature Pulse Rate 94 H 90 88 Respiratory Rate Blood Pressure O2 Sat by Pulse 99 97 99 Oximetry O2 Sat by Pulse Oximetry [ Bilateral Throughout] 04/21/22 04/21/22 04/21/22 19:59 20:03 20:08 Temperature Pulse Rate 87 91 H 90 Respiratory Rate Blood Pressure 123/81 O2 Sat by Pulse 99 98 Oximetry O2 Sat by Pulse Oximetry [ Bilateral Throughout] 04/21/22 04/21/22 04/21/22 20:14 20:18 20:23 Temperature Pulse Rate 91 H 89 88 Respiratory Rate Blood Pressure O2 Sat by Pulse 98 98 98 Oximetry O2 Sat by Pulse Oximetry [ Bilateral Throughout] 04/21/22 04/21/22 04/21/22 20:28 20:34 20:39 Temperature Pulse Rate 92 H 84 85 Respiratory Rate Blood Pressure O2 Sat by Pulse 98 99 98 Oximetry O2 Sat by Pulse Oximetry [ Bilateral Throughout] 04/21/22 04/21/22 04/21/22 20:43 20:48 20:53 Temperature Pulse Rate 89 94 H 88 Respiratory Rate Blood Pressure O2 Sat by Pulse 99 98 99 Oximetry O2 Sat by Pulse Oximetry [ Bilateral Throughout] 04/21/22 04/21/22 04/21/22 20:58 21:03 21:09 Temperature Pulse Rate 85 95 H 86 Respiratory Rate Blood Pressure O2 Sat by Pulse 99 100 97 Oximetry O2 Sat by Pulse Oximetry [ Bilateral Throughout] 04/21/22 04/21/22 04/21/22 21:13 21:19 21:30 Temperature Pulse Rate 100 H 87 90 Respiratory Rate Blood Pressure O2 Sat by Pulse 98 99 99 Oximetry O2 Sat by Pulse Oximetry [ Bilateral Throughout] 04/21/22 04/21/22 04/21/22 21:34 21:39 21:44 Temperature Pulse Rate 89 89 80 Respiratory Rate Blood Pressure O2 Sat by Pulse 99 98 98 Oximetry O2 Sat by Pulse Oximetry [ Bilateral Throughout] 04/21/22 04/21/22 04/21/22 21:50 21:54 21:59 Temperature 98.4 F Pulse Rate 87 84 87 Respiratory Rate Blood Pressure 111/77 O2 Sat by Pulse 99 98 100 Oximetry O2 Sat by Pulse Oximetry [ Bilateral Throughout] 04/21/22 04/21/22 04/21/22 22:04 22:09 22:15 Temperature Pulse Rate 80 88 87 Respiratory Rate Blood Pressure O2 Sat by Pulse 99 99 98 Oximetry O2 Sat by Pulse Oximetry [ Bilateral Throughout] 04/21/22 04/21/22 04/21/22 22:19 22:24 22:29 Temperature Pulse Rate 90 87 88 Respiratory Rate Blood Pressure O2 Sat by Pulse 98 99 96 Oximetry O2 Sat by Pulse Oximetry [ Bilateral Throughout] 04/21/22 04/21/22 04/21/22 22:34 22:39 22:44 Temperature Pulse Rate 88 93 H 86 Respiratory Rate Blood Pressure O2 Sat by Pulse 96 96 98 Oximetry O2 Sat by Pulse Oximetry [ Bilateral Throughout] 04/21/22 04/21/22 04/21/22 22:50 22:55 22:59 Temperature Pulse Rate 86 84 85 Respiratory Rate Blood Pressure O2 Sat by Pulse 98 98 96 Oximetry O2 Sat by Pulse Oximetry [ Bilateral Throughout] 04/21/22 04/21/22 04/21/22 23:05 23:09 23:15 Temperature Pulse Rate 86 86 85 Respiratory Rate Blood Pressure O2 Sat by Pulse 96 96 95 Oximetry O2 Sat by Pulse Oximetry [ Bilateral Throughout] 04/21/22 04/21/22 04/21/22 23:19 23:25 23:27 Temperature Pulse Rate 86 87 83 Respiratory Rate Blood Pressure O2 Sat by Pulse 95 95 93 Oximetry O2 Sat by Pulse Oximetry [ Bilateral Throughout] 04/21/22 04/21/22 04/21/22 23:30 23:35 23:37 Temperature Pulse Rate 87 84 89 Respiratory Rate Blood Pressure O2 Sat by Pulse 96 95 94 Oximetry O2 Sat by Pulse Oximetry [ Bilateral Throughout] 04/21/22 04/21/22 04/21/22 23:40 23:45 23:50 Temperature Pulse Rate 86 85 90 Respiratory Rate Blood Pressure O2 Sat by Pulse 96 95 96 Oximetry O2 Sat by Pulse Oximetry [ Bilateral Throughout] 04/21/22 04/22/22 04/22/22 23:55 00:00 00:05 Temperature Pulse Rate 89 86 105 H Respiratory Rate Blood Pressure 118/56 O2 Sat by Pulse 94 96 98 Oximetry O2 Sat by Pulse Oximetry [ Bilateral Throughout] 04/22/22 04/22/22 04/22/22 00:10 00:15 00:20 Temperature Pulse Rate 86 87 93 H Respiratory Rate Blood Pressure O2 Sat by Pulse 98 97 97 Oximetry O2 Sat by Pulse Oximetry [ Bilateral Throughout] 04/22/22 04/22/22 04/22/22 00:25 00:30 00:35 Temperature Pulse Rate 90 89 97 H Respiratory Rate Blood Pressure O2 Sat by Pulse 97 97 98 Oximetry O2 Sat by Pulse Oximetry [ Bilateral Throughout] 04/22/22 04/22/22 04/22/22 00:40 00:45 00:50 Temperature Pulse Rate 90 92 H 90 Respiratory Rate Blood Pressure O2 Sat by Pulse 97 97 98 Oximetry O2 Sat by Pulse Oximetry [ Bilateral Throughout] 04/22/22 04/22/22 04/22/22 00:58 01:03 01:08 Temperature Pulse Rate 99 H 87 85 Respiratory Rate Blood Pressure O2 Sat by Pulse 98 98 96 Oximetry O2 Sat by Pulse Oximetry [ Bilateral Throughout] 04/22/22 04/22/22 04/22/22 01:13 01:18 01:23 Temperature Pulse Rate 83 85 82 Respiratory Rate Blood Pressure O2 Sat by Pulse 98 96 98 Oximetry O2 Sat by Pulse Oximetry [ Bilateral Throughout] 08/10/1304/22/22 04/22/22 01:28 01:32 01:38 Temperature Pulse Rate 84 83 88 Respiratory Rate Blood Pressure O2 Sat by Pulse 98 97 97 Oximetry O2 Sat by Pulse Oximetry [ Bilateral Throughout] 04/22/22 04/22/22 04/22/22 01:43 01:48 01:53 Temperature Pulse Rate 83 82 83 Respiratory Rate Blood Pressure O2 Sat by Pulse 97 97 97 Oximetry O2 Sat by Pulse Oximetry [ Bilateral Throughout] 04/22/22 04/22/22 04/22/22 01:58 01:59 02:03 Temperature Pulse Rate 86 81 90 Respiratory Rate Blood Pressure 108/54 O2 Sat by Pulse 97 97 Oximetry O2 Sat by Pulse Oximetry [ Bilateral Throughout] 04/22/22 04/22/22 04/22/22 02:08 02:22 02:26 Temperature Pulse Rate 85 82 79 Respiratory Rate Blood Pressure O2 Sat by Pulse 98 97 98 Oximetry O2 Sat by Pulse Oximetry [ Bilateral Throughout] 04/22/22 04/22/22 04/22/22 02:32 02:37 02:42 Temperature Pulse Rate 79 80 79 Respiratory Rate Blood Pressure O2 Sat by Pulse 98 98 97 Oximetry O2 Sat by Pulse Oximetry [ Bilateral Throughout] 04/22/22 04/22/22 04/22/22 02:47 02:52 02:57 Temperature Pulse Rate 84 79 84 Respiratory Rate Blood Pressure O2 Sat by Pulse 96 96 96 Oximetry O2 Sat by Pulse Oximetry [ Bilateral Throughout] 04/22/22 04/22/22 04/22/22 03:02 03:07 03:12 Temperature Pulse Rate 81 94 H 84 Respiratory Rate Blood Pressure O2 Sat by Pulse 95 97 96 Oximetry O2 Sat by Pulse Oximetry [ Bilateral Throughout] 04/22/22 04/22/22 04/22/22 03:17 03:22 03:27 Temperature Pulse Rate 85 85 85 Respiratory Rate Blood Pressure O2 Sat by Pulse 97 97 96 Oximetry O2 Sat by Pulse Oximetry [ Bilateral Throughout] 04/22/22 04/22/22 04/22/22 03:32 03:37 03:42 Temperature Pulse Rate 85 84 82 Respiratory Rate Blood Pressure O2 Sat by Pulse 96 96 95 Oximetry O2 Sat by Pulse Oximetry [ Bilateral Throughout] 04/22/22 04/22/22 04/22/22 03:49 03:54 03:59 Temperature Pulse Rate 100 H 87 80 Respiratory Rate Blood Pressure O2 Sat by Pulse 97 97 97 Oximetry O2 Sat by Pulse Oximetry [ Bilateral Throughout] 04/22/22 04/22/22 04/22/22 04:00 04:04 04:09 Temperature Pulse Rate 78 83 83 Respiratory Rate Blood Pressure 101/55 O2 Sat by Pulse 97 97 Oximetry O2 Sat by Pulse Oximetry [ Bilateral Throughout] 04/22/22 04/22/22 04/22/22 04:14 04:19 04:24 Temperature Pulse Rate 89 82 86 Respiratory Rate Blood Pressure O2 Sat by Pulse 97 96 97 Oximetry O2 Sat by Pulse Oximetry [ Bilateral Throughout] 04/22/22 04/22/22 04/22/22 04:29 04:34 04:39 Temperature Pulse Rate 88 89 88 Respiratory Rate Blood Pressure O2 Sat by Pulse 97 96 96 Oximetry O2 Sat by Pulse Oximetry [ Bilateral Throughout] 04/22/22 04/22/22 04/22/22 04:44 04:49 04:54 Temperature Pulse Rate 92 H 89 100 H Respiratory Rate Blood Pressure O2 Sat by Pulse 97 96 97 Oximetry O2 Sat by Pulse Oximetry [ Bilateral Throughout] 04/22/22 04/22/22 04/22/22 04:55 04:59 05:07 Temperature Pulse Rate 83 91 H 104 H Respiratory Rate Blood Pressure O2 Sat by Pulse 94 98 97 Oximetry O2 Sat by Pulse Oximetry [ Bilateral Throughout] 04/22/22 04/22/22 04/22/22 05:10 05:12 05:17 Temperature 98.9 F Pulse Rate 90 81 Respiratory Rate Blood Pressure O2 Sat by Pulse 98 99 Oximetry O2 Sat by Pulse Oximetry [ Bilateral Throughout] 04/22/22 04/22/22 04/22/22 05:22 05:27 05:32 Temperature Pulse Rate 82 80 83 Respiratory Rate Blood Pressure O2 Sat by Pulse 99 98 98 Oximetry O2 Sat by Pulse Oximetry [ Bilateral Throughout] 04/22/22 04/22/22 04/22/22 05:37 05:42 05:47 Temperature Pulse Rate 84 88 89 Respiratory Rate Blood Pressure O2 Sat by Pulse 98 96 98 Oximetry O2 Sat by Pulse Oximetry [ Bilateral Throughout] 04/22/22 04/22/22 04/22/22 05:52 05:56 06:00 Temperature Pulse Rate 89 85 83 Respiratory Rate Blood Pressure 107/72 O2 Sat by Pulse 98 98 Oximetry O2 Sat by Pulse Oximetry [ Bilateral Throughout] 04/22/22 04/22/22 04/22/22 06:02 06:07 06:12 Temperature Pulse Rate 84 88 97 H Respiratory Rate Blood Pressure O2 Sat by Pulse 97 97 97 Oximetry O2 Sat by Pulse Oximetry [ Bilateral Throughout] 04/22/22 04/22/22 04/22/22 06:17 06:22 06:27 Temperature Pulse Rate 88 88 84 Respiratory Rate Blood Pressure O2 Sat by Pulse 97 97 97 Oximetry O2 Sat by Pulse Oximetry [ Bilateral Throughout] 04/22/22 04/22/22 04/22/22 06:32 06:37 06:42 Temperature Pulse Rate 86 83 92 H Respiratory Rate Blood Pressure O2 Sat by Pulse 98 98 97 Oximetry O2 Sat by Pulse Oximetry [ Bilateral Throughout] 04/22/22 04/22/22 04/22/22 06:47 06:52 06:57 Temperature Pulse Rate 86 88 89 Respiratory Rate Blood Pressure O2 Sat by Pulse 98 98 97 Oximetry O2 Sat by Pulse Oximetry [ Bilateral Throughout] 04/22/22 04/22/22 04/22/22 07:02 07:07 07:12 Temperature 98.5 F Pulse Rate 95 H 86 83 Respiratory 14 Rate Blood Pressure O2 Sat by Pulse 100 98 97 Oximetry O2 Sat by Pulse 100 Oximetry [ Bilateral Throughout] 04/22/22 04/22/22 04/22/22 07:14 07:17 07:22 Temperature Pulse Rate 85 85 89 Respiratory Rate Blood Pressure 111/68 O2 Sat by Pulse 98 98 Oximetry O2 Sat by Pulse Oximetry [ Bilateral Throughout] 04/22/22 07:27 Temperature Pulse Rate 90 Respiratory Rate Blood Pressure O2 Sat by Pulse 98 Oximetry O2 Sat by Pulse Oximetry [ Bilateral Throughout] - Exam Breasts: deferred Cardiovascular: Regular rate Lungs: Normal air movement Abdomen: Present: normal appearance, soft FHR: category 1 Uterine Contraction Monitor Mode: External Cervical Dilatation: 3.5 (Per pipe buffer RN) Cervical Effacement Percentage: 70 station: -2 Uterine Contraction Pattern: Regular Uterine Tone Measurement Phase: Resting Uterine Contraction Intensity: Mild - Labs Labs: Abnormal Labs 04/20/22 15:13 RDW 15.5 H Laboratory Results - last 24 hr 04/21/22 12:25 SARS-CoV-2 (PCR) Negative
--- NOTE | 2022-04-22 12:57 | Event Note ---
Date: 04/22/22 (Cervidil removed) Came to check on patient. Cervidil removed. Cervical exam 2.5//-3, soft, posterior. Discussed allowing the patient to shower and eat, then starting Pitocin. Pt verbalized understanding and agrees to plan.
[2022-04-22] MEDS ORDERED: OXYTOCIN DRIP 30 UNITS/500 ML BAG IV SCH (13:00)
--- NOTE | 2022-04-22 19:07 | Progress Note ---
Assessment and Plan A: 31 y.o. @ 39 wks, IOL d/t IUGR. - Patient Problems (1) Carrier of group B Streptococcus Current Visit: Yes Status: Acute Plan to address problem: Continue with antibiotics in labor. (2) Intrauterine growth restriction (IUGR) affecting care of mother, third trimester, single gestation Current Visit: Yes Status: Acute Plan to address problem: Continue with Pitocin per protocol. - Currently at 12 mu. Will consider AROM at next exam if able. (3) with 38 completed weeks gestation Current Visit: Yes Status: Acute Subjective - Subjective Date of service: 04/22/22 Principal diagnosis: IUP @ 39 wks, IOL d/t IUGR Interval history: Pt is starting to feel some contractions. Still does not want an epidural. Will reposition patient in bed. Patient reports: movement normal, contractions Objective - Vital Signs Vital Signs: Vital Signs - 12hr 04/22/22 04/22/22 04/22/22 07:07 07:12 07:14 Temperature Pulse Rate 86 83 85 Blood Pressure 111/68 O2 Sat by Pulse 98 97 Oximetry 04/22/22 04/22/22 04/22/22 07:17 07:22 07:27 Temperature Pulse Rate 85 89 90 Blood Pressure O2 Sat by Pulse 98 98 98 Oximetry 04/22/22 04/22/22 04/22/22 07:36 07:37 07:42 Temperature Pulse Rate 60 96 H 83 Blood Pressure O2 Sat by Pulse 91 100 98 Oximetry 04/22/22 04/22/22 04/22/22 07:47 07:52 07:57 Temperature Pulse Rate 87 90 86 Blood Pressure O2 Sat by Pulse 99 99 97 Oximetry 04/22/22 04/22/22 04/22/22 08:02 08:07 08:12 Temperature Pulse Rate 84 83 84 Blood Pressure O2 Sat by Pulse 99 97 98 Oximetry 04/22/22 04/22/22 04/22/22 08:17 08:22 08:27 Temperature Pulse Rate 92 H 89 95 H Blood Pressure O2 Sat by Pulse 99 98 100 Oximetry 04/22/22 04/22/22 04/22/22 08:48 08:53 08:58 Temperature Pulse Rate 93 H 90 Blood Pressure O2 Sat by Pulse 90 100 99 Oximetry 04/22/22 04/22/22 04/22/22 09:03 09:08 09:13 Temperature Pulse Rate 87 90 84 Blood Pressure O2 Sat by Pulse 98 97 97 Oximetry 04/22/22 04/22/22 04/22/22 09:18 09:23 09:28 Temperature Pulse Rate 85 90 85 Blood Pressure O2 Sat by Pulse 97 97 97 Oximetry 04/22/22 04/22/22 04/22/22 09:33 09:38 09:43 Temperature Pulse Rate 83 86 86 Blood Pressure O2 Sat by Pulse 97 97 96 Oximetry 04/22/22 04/22/22 04/22/22 09:48 09:53 09:58 Temperature Pulse Rate 86 89 93 H Blood Pressure O2 Sat by Pulse 96 97 97 Oximetry 04/22/22 04/22/22 04/22/22 10:03 10:08 10:13 Temperature Pulse Rate 96 H 92 H 95 H Blood Pressure O2 Sat by Pulse 97 96 98 Oximetry 04/22/22 04/22/22 04/22/22 10:18 10:23 11:03 Temperature Pulse Rate 92 H 92 H 96 H Blood Pressure 125/76 O2 Sat by Pulse 97 100 Oximetry 04/22/22 04/22/22 04/22/22 11:06 11:11 11:16 Temperature Pulse Rate 96 H 94 H 99 H Blood Pressure O2 Sat by Pulse 100 99 99 Oximetry 04/22/22 04/22/22 04/22/22 11:21 11:26 11:31 Temperature Pulse Rate 93 H 97 H 95 H Blood Pressure O2 Sat by Pulse 98 98 99 Oximetry 04/22/22 04/22/22 04/22/22 11:36 11:41 11:46 Temperature Pulse Rate 93 H 94 H 90 Blood Pressure O2 Sat by Pulse 98 98 99 Oximetry 04/22/22 04/22/22 04/22/22 11:51 11:56 12:01 Temperature Pulse Rate 92 H 94 H 97 H Blood Pressure O2 Sat by Pulse 98 99 99 Oximetry 04/22/22 04/22/22 04/22/22 12:06 12:11 12:16 Temperature Pulse Rate 97 H 99 H 92 H Blood Pressure O2 Sat by Pulse 99 98 98 Oximetry 04/22/22 04/22/22 04/22/22 12:21 12:26 12:31 Temperature Pulse Rate 96 H 94 H 109 H Blood Pressure O2 Sat by Pulse 99 99 99 Oximetry 04/22/22 04/22/22 04/22/22 12:36 12:41 14:11 Temperature Pulse Rate 105 H 100 H 102 H Blood Pressure O2 Sat by Pulse 99 99 100 Oximetry 04/22/22 04/22/22 04/22/22 14:16 14:21 14:26 Temperature Pulse Rate 102 H 95 H 94 H Blood Pressure O2 Sat by Pulse 100 99 100 Oximetry 04/22/22 04/22/22 04/22/22 14:29 14:31 14:36 Temperature Pulse Rate 88 92 H 94 H Blood Pressure 118/63 O2 Sat by Pulse 99 99 Oximetry 04/22/22 04/22/22 04/22/22 14:41 14:46 14:51 Temperature Pulse Rate 95 H 91 H 93 H Blood Pressure O2 Sat by Pulse 99 100 100 Oximetry 04/22/22 04/22/22 04/22/22 14:56 15:01 15:06 Temperature Pulse Rate 102 H 89 89 Blood Pressure O2 Sat by Pulse 99 99 99 Oximetry 04/22/22 04/22/22 04/22/22 15:14 15:19 15:24 Temperature Pulse Rate 98 H 95 H 91 H Blood Pressure O2 Sat by Pulse 99 99 99 Oximetry 04/22/22 04/22/22 04/22/22 15:29 15:34 15:39 Temperature Pulse Rate 89 89 92 H Blood Pressure O2 Sat by Pulse 100 100 100 Oximetry 04/22/22 04/22/22 04/22/22 15:44 15:49 15:54 Temperature Pulse Rate 90 94 H 96 H Blood Pressure O2 Sat by Pulse 99 100 100 Oximetry 04/22/22 04/22/22 04/22/22 15:59 16:04 16:07 Temperature 98.7 F Pulse Rate 91 H 92 H Blood Pressure O2 Sat by Pulse 100 99 Oximetry 04/22/22 04/22/22 04/22/22 16:08 16:09 16:14 Temperature Pulse Rate 87 93 H 95 H Blood Pressure 118/77 O2 Sat by Pulse 100 98 Oximetry 04/22/22 04/22/22 04/22/22 16:19 16:24 16:29 Temperature Pulse Rate 90 92 H 106 H Blood Pressure O2 Sat by Pulse 98 99 99 Oximetry 04/22/22 04/22/22 04/22/22 16:34 16:39 16:44 Temperature Pulse Rate 92 H 84 93 H Blood Pressure O2 Sat by Pulse 99 99 100 Oximetry 04/22/22 04/22/22 04/22/22 16:49 16:54 16:59 Temperature Pulse Rate 93 H 80 79 Blood Pressure O2 Sat by Pulse 99 99 100 Oximetry 04/22/22 04/22/22 04/22/22 17:04 17:09 17:14 Temperature Pulse Rate 89 87 94 H Blood Pressure O2 Sat by Pulse 100 100 98 Oximetry 04/22/22 04/22/22 04/22/22 17:19 17:24 17:29 Temperature Pulse Rate 82 90 87 Blood Pressure O2 Sat by Pulse 99 99 100 Oximetry 04/22/22 04/22/22 04/22/22 17:34 17:39 17:44 Temperature Pulse Rate 85 88 90 Blood Pressure O2 Sat by Pulse 98 98 99 Oximetry 04/22/22 04/22/22 04/22/22 17:49 17:54 17:59 Temperature Pulse Rate 83 89 87 Blood Pressure O2 Sat by Pulse 100 98 98 Oximetry 04/22/22 04/22/22 04/22/22 18:12 18:17 18:22 Temperature Pulse Rate 85 91 H 84 Blood Pressure O2 Sat by Pulse 99 99 100 Oximetry 04/22/22 04/22/22 04/22/22 18:27 18:32 18:37 Temperature Pulse Rate 89 90 94 H Blood Pressure O2 Sat by Pulse 100 100 100 Oximetry 04/22/22 04/22/22 04/22/22 18:42 18:47 18:52 Temperature Pulse Rate 82 91 H 88 Blood Pressure O2 Sat by Pulse 100 100 100 Oximetry 04/22/22 04/22/22 18:57 19:02 Temperature Pulse Rate 83 89 Blood Pressure O2 Sat by Pulse 100 99 Oximetry - Exam Narrative Exam: Last cervical exam ~ 1254 2.5/70/-2. Breasts: deferred Cardiovascular: Regular rate Abdomen: Present: normal appearance, soft FHR: category 1 Uterine Contraction Monitor Mode: External Uterine Contraction Pattern: Regular Uterine Tone Measurement Phase: Resting Uterine Contraction Intensity: Moderate Extremities: normal - Labs Labs: Abnormal Labs 04/20/22 15:13 RDW 15.5 H
[2022-04-22] MEDS ORDERED: BUPIVACAINE/PF (0.25%) 2.5 MG/ML 10 ML VIAL INFILTRATI ONE (20:33)
[2022-04-22] MEDS ORDERED: fentaNYL-BUPIV 2 MCG/ML-0.125% 200 MCG/100 ML BAG EPIDURAL SCH (21:00)
[2022-04-22] MEDS ORDERED: ePHEDrine SULFATE 50 MG/1 ML INJ IV PRN (21:00)
[2022-04-22] MEDS ORDERED: NALOXONE 0.4 MG/1 ML INJ IV PRN (21:00)
--- NOTE | 2022-04-22 21:04 | Anesthesia Consultation ---
Anesthesia Consult and Med Hx Date of service: 04/22/22 - Airway Anesthetic Teeth Evaluation: Good ROM Head & Neck: Adequate Mental/Hyoid Distance: Adequate Mallampati Class: Class II Intubation Access Assessment: Probably Good - Pulmonary Exam CTA: Yes - Cardiac Exam Cardiac Exam: RRR - Pre-Operative Health Status ASA Pre-Surgery Classification: ASA2 Proposed Anesthetic Plan: Epidural - Pulmonary Hx Smoking: No Hx Asthma: No Hx Respiratory Symptoms: No SOB: No COPD: No Home Oxygen Therapy: No Hx Pneumonia: No Hx Sleep Apnea: No - Cardiovascular System Hx Hypertension: No Hx Coronary Artery Disease: No Hx Heart Attack/AMI: No Hx Angina: No Hx Percutaneous Transluminal Coronary Angioplasty (PTCA): No Hx Cardia Arrhythmia: No Hx Pacemaker: No Hx Internal Defibrillator: No Hx Valvular Heart Disease: No Hx Heart Murmur: No Hx Peripheral Vascular Disease: No - Central Nervous System Hx Neuromuscular Disorder: No Hx Seizures: No CVA: No Hx Back Pain: No Hx Psychiatric Problems: No - Gastrointestinal Hx Ulcer: No Hx Gastroesophageal Reflux Disease: No - Endocrine Hx Renal Disease: No Hx End Stage Renal Disease: No Hx Cirrhosis: No Hx Liver Disease: No Hx Insulin Dependent Diabetes: No Hx Non-Insulin Dependent Diabetes: No Hx Thyroid Disease: No Hx Hypothyroidism: No Hx Hyperthyroidism: No - Hematic Hx Anemia: No Hx Sickle Cell Disease: No - Other Systems Hx Alcohol Use: No Hx Substance Use: No Hx Cancer: No Hx Obesity: No
--- NOTE | 2022-04-22 21:05 | Anesthesia Day of Surgery ---
Anesthesia Day of Surgery - Day of Surgery Patient Examined: Yes Patient H&P Reviewed: Yes Patient is NPO: Yes Beta Blockers: No Cardiac Clearance: No Pulmonary Clearance: No Kenney's Test: N/A
--- NOTE | 2022-04-22 21:05 | Progress Note ---
Labor Epidural - Labor Epidural Start Time: 20:38 Stop Time: 20:44 Performed by:: NOE LOCKETT Procedure: Epidural Requested for Labor Pain. H&P and PT Chart reviewed and consent obtained. Time out performed and the procedure was explained, all questions answered. Patient was placed in a sitting position with monitors applied. The PTs back was prepped and draped in usual sterile fashion. The Skin was localized with 3 mL of 1% lidocaine at L3-L4. A 17-gauge Touhy epidural needle was advanced to MARILYN with saline at 7 cm and no blood/CSF was noted via epidural needle. Epidural catheter was advanced to 12 cm. There was negative aspiration for blood and CSF in the catheter and negative response to a test dose of 3 ml 1.5% lidocaine w/ Epi and a sterile dressing was applied Patient tolerated the procedure well and there were no immediate complications noted.
--- NOTE | 2022-04-22 23:58 | Progress Note ---
Assessment and Plan A: 31 y.o. @ 39.1 wks, IOL d/t IUGR. Active labor. - Patient Problems (1) Carrier of group B Streptococcus Current Visit: Yes Status: Acute (2) Intrauterine growth restriction (IUGR) affecting care of mother, third trimester, single gestation Current Visit: Yes Status: Acute Plan to address problem: Will turn down epidural in half. Allow patient to labor down. Anticipate . (3) with 38 completed weeks gestation Current Visit: Yes Status: Acute Subjective - Subjective Date of service: 04/22/22 Principal diagnosis: IUP @ 39 wks, IOL d/t IUGR Interval history: Pt comfortable with epidural. Tried a trial of pushing. Pt can not feel her legs during pushing. Patient reports: movement normal, contractions Objective - Vital Signs Vital Signs: Vital Signs - 12hr 04/22/22 04/22/22 04/22/22 11:51 11:56 12:01 Temperature Pulse Rate 92 H 94 H 97 H Blood Pressure O2 Sat by Pulse 98 99 99 Oximetry O2 Sat by Pulse Oximetry [ Bilateral Throughout] 04/22/22 04/22/22 04/22/22 12:06 12:11 12:16 Temperature Pulse Rate 97 H 99 H 92 H Blood Pressure O2 Sat by Pulse 99 98 98 Oximetry O2 Sat by Pulse Oximetry [ Bilateral Throughout] 04/22/22 04/22/22 04/22/22 12:21 12:26 12:31 Temperature Pulse Rate 96 H 94 H 109 H Blood Pressure O2 Sat by Pulse 99 99 99 Oximetry O2 Sat by Pulse Oximetry [ Bilateral Throughout] 04/22/22 04/22/22 04/22/22 12:36 12:41 14:11 Temperature Pulse Rate 105 H 100 H 102 H Blood Pressure O2 Sat by Pulse 99 99 100 Oximetry O2 Sat by Pulse Oximetry [ Bilateral Throughout] 04/22/22 04/22/22 04/22/22 14:16 14:21 14:26 Temperature Pulse Rate 102 H 95 H 94 H Blood Pressure O2 Sat by Pulse 100 99 100 Oximetry O2 Sat by Pulse Oximetry [ Bilateral Throughout] 04/22/22 04/22/22 04/22/22 14:29 14:31 14:36 Temperature Pulse Rate 88 92 H 94 H Blood Pressure 118/63 O2 Sat by Pulse 99 99 Oximetry O2 Sat by Pulse Oximetry [ Bilateral Throughout] 04/22/22 04/22/22 04/22/22 14:41 14:46 14:51 Temperature Pulse Rate 95 H 91 H 93 H Blood Pressure O2 Sat by Pulse 99 100 100 Oximetry O2 Sat by Pulse Oximetry [ Bilateral Throughout] 04/22/22 04/22/22 04/22/22 14:56 15:01 15:06 Temperature Pulse Rate 102 H 89 89 Blood Pressure O2 Sat by Pulse 99 99 99 Oximetry O2 Sat by Pulse Oximetry [ Bilateral Throughout] 04/22/22 04/22/22 04/22/22 15:14 15:19 15:24 Temperature Pulse Rate 98 H 95 H 91 H Blood Pressure O2 Sat by Pulse 99 99 99 Oximetry O2 Sat by Pulse Oximetry [ Bilateral Throughout] 04/22/22 04/22/22 04/22/22 15:29 15:34 15:39 Temperature Pulse Rate 89 89 92 H Blood Pressure O2 Sat by Pulse 100 100 100 Oximetry O2 Sat by Pulse Oximetry [ Bilateral Throughout] 04/22/22 04/22/22 04/22/22 15:44 15:49 15:54 Temperature Pulse Rate 90 94 H 96 H Blood Pressure O2 Sat by Pulse 99 100 100 Oximetry O2 Sat by Pulse Oximetry [ Bilateral Throughout] 04/22/22 04/22/22 04/22/22 15:59 16:04 16:07 Temperature 98.7 F Pulse Rate 91 H 92 H Blood Pressure O2 Sat by Pulse 100 99 Oximetry O2 Sat by Pulse Oximetry [ Bilateral Throughout] 04/22/22 04/22/22 04/22/22 16:08 16:09 16:14 Temperature Pulse Rate 87 93 H 95 H Blood Pressure 118/77 O2 Sat by Pulse 100 98 Oximetry O2 Sat by Pulse Oximetry [ Bilateral Throughout] 04/22/22 04/22/22 04/22/22 16:19 16:24 16:29 Temperature Pulse Rate 90 92 H 106 H Blood Pressure O2 Sat by Pulse 98 99 99 Oximetry O2 Sat by Pulse Oximetry [ Bilateral Throughout] 04/22/22 04/22/22 04/22/22 16:34 16:39 16:44 Temperature Pulse Rate 92 H 84 93 H Blood Pressure O2 Sat by Pulse 99 99 100 Oximetry O2 Sat by Pulse Oximetry [ Bilateral Throughout] 08/01/22 08/01/22 08/01/22 16:49 16:54 16:59 Temperature Pulse Rate 93 H 80 79 Blood Pressure O2 Sat by Pulse 99 99 100 Oximetry O2 Sat by Pulse Oximetry [ Bilateral Throughout] 04/22/22 04/22/22 04/22/22 17:04 17:09 17:14 Temperature Pulse Rate 89 87 94 H Blood Pressure O2 Sat by Pulse 100 100 98 Oximetry O2 Sat by Pulse Oximetry [ Bilateral Throughout] 04/22/22 04/22/22 04/22/22 17:19 17:24 17:29 Temperature Pulse Rate 82 90 87 Blood Pressure O2 Sat by Pulse 99 99 100 Oximetry O2 Sat by Pulse Oximetry [ Bilateral Throughout] 04/22/22 04/22/22 04/22/22 17:34 17:39 17:44 Temperature Pulse Rate 85 88 90 Blood Pressure O2 Sat by Pulse 98 98 99 Oximetry O2 Sat by Pulse Oximetry [ Bilateral Throughout] 04/22/22 04/22/22 04/22/22 17:49 17:54 17:59 Temperature Pulse Rate 83 89 87 Blood Pressure O2 Sat by Pulse 100 98 98 Oximetry O2 Sat by Pulse Oximetry [ Bilateral Throughout] 04/22/22 04/22/22 04/22/22 18:12 18:17 18:22 Temperature Pulse Rate 85 91 H 84 Blood Pressure O2 Sat by Pulse 99 99 100 Oximetry O2 Sat by Pulse Oximetry [ Bilateral Throughout] 04/22/22 04/22/22 04/22/22 18:27 18:32 18:37 Temperature Pulse Rate 89 90 94 H Blood Pressure O2 Sat by Pulse 100 100 100 Oximetry O2 Sat by Pulse Oximetry [ Bilateral Throughout] 04/22/22 04/22/22 04/22/22 18:42 18:47 18:52 Temperature Pulse Rate 82 91 H 88 Blood Pressure O2 Sat by Pulse 100 100 100 Oximetry O2 Sat by Pulse Oximetry [ Bilateral Throughout] 04/22/22 04/22/22 04/22/22 18:57 19:02 19:10 Temperature Pulse Rate 83 89 Blood Pressure O2 Sat by Pulse 100 99 Oximetry O2 Sat by Pulse 100 Oximetry [ Bilateral Throughout] 04/22/22 04/22/22 04/22/22 19:17 19:21 19:22 Temperature 98.4 F Pulse Rate 83 83 Blood Pressure 118/61 O2 Sat by Pulse 100 99 Oximetry O2 Sat by Pulse Oximetry [ Bilateral Throughout] 04/22/22 04/22/22 04/22/22 19:27 19:32 19:37 Temperature Pulse Rate 89 84 88 Blood Pressure O2 Sat by Pulse 100 100 99 Oximetry O2 Sat by Pulse Oximetry [ Bilateral Throughout] 04/22/22 04/22/22 04/22/22 19:42 19:47 19:52 Temperature Pulse Rate 87 89 82 Blood Pressure O2 Sat by Pulse 99 100 100 Oximetry O2 Sat by Pulse Oximetry [ Bilateral Throughout] 04/22/22 04/22/22 04/22/22 19:57 20:02 20:07 Temperature Pulse Rate 92 H 85 92 H Blood Pressure O2 Sat by Pulse 100 99 99 Oximetry O2 Sat by Pulse Oximetry [ Bilateral Throughout] 04/22/22 04/22/22 04/22/22 20:23 20:28 20:33 Temperature Pulse Rate 88 87 84 Blood Pressure O2 Sat by Pulse 100 100 99 Oximetry O2 Sat by Pulse Oximetry [ Bilateral Throughout] 04/22/22 04/22/22 04/22/22 20:36 20:38 20:39 Temperature Pulse Rate 89 100 H 106 H Blood Pressure 140/77 148/75 O2 Sat by Pulse 100 Oximetry O2 Sat by Pulse Oximetry [ Bilateral Throughout] 04/22/22 04/22/22 04/22/22 20:40 20:42 20:43 Temperature Pulse Rate 103 H 97 H 100 H Blood Pressure 140/77 140/70 O2 Sat by Pulse 100 Oximetry O2 Sat by Pulse Oximetry [ Bilateral Throughout] 04/22/22 04/22/22 04/22/22 20:44 20:46 20:48 Temperature Pulse Rate 99 H 88 86 Blood Pressure 134/65 136/58 128/62 O2 Sat by Pulse 100 Oximetry O2 Sat by Pulse Oximetry [ Bilateral Throughout] 04/22/22 04/22/22 04/22/22 20:52 20:53 20:54 Temperature Pulse Rate 85 92 H Blood Pressure 124/66 123/69 O2 Sat by Pulse 100 Oximetry O2 Sat by Pulse Oximetry [ Bilateral Throughout] 04/22/22 04/22/22 04/22/22 20:58 21:00 21:02 Temperature Pulse Rate 83 83 151 H Blood Pressure 115/68 100/56 O2 Sat by Pulse 99 Oximetry O2 Sat by Pulse Oximetry [ Bilateral Throughout] 04/22/22 04/22/2222 21:03 21:04 21:08 Temperature Pulse Rate 85 142 H 137 H Blood Pressure 103/57 182/116 O2 Sat by Pulse 99 100 Oximetry O2 Sat by Pulse Oximetry [ Bilateral Throughout] 04/22/22 04/22/22 04/22/22 21:10 21:12 21:13 Temperature Pulse Rate 83 100 H 89 Blood Pressure 122/61 124/69 O2 Sat by Pulse 100 Oximetry O2 Sat by Pulse Oximetry [ Bilateral Throughout] 04/22/22 04/22/22 04/22/22 21:14 21:16 21:18 Temperature Pulse Rate 88 210 H 78 Blood Pressure 125/58 125/60 118/61 O2 Sat by Pulse 100 Oximetry O2 Sat by Pulse Oximetry [ Bilateral Throughout] 04/22/22 04/22/22 04/22/22 21:20 21:23 21:24 Temperature Pulse Rate 80 91 H 83 Blood Pressure 115/59 122/58 O2 Sat by Pulse 98 Oximetry O2 Sat by Pulse Oximetry [ Bilateral Throughout] 04/22/22 04/22/22 04/22/22 21:26 21:28 21:33 Temperature Pulse Rate 88 78 84 Blood Pressure 111/63 117/56 O2 Sat by Pulse 100 99 Oximetry O2 Sat by Pulse Oximetry [ Bilateral Throughout] 04/22/22 04/22/22 04/22/22 21:38 21:43 21:48 Temperature Pulse Rate 83 84 88 Blood Pressure O2 Sat by Pulse 99 99 100 Oximetry O2 Sat by Pulse Oximetry [ Bilateral Throughout] 04/22/22 04/22/22 04/22/22 21:53 21:58 22:00 Temperature Pulse Rate 86 86 81 Blood Pressure 119/63 O2 Sat by Pulse 99 100 Oximetry O2 Sat by Pulse Oximetry [ Bilateral Throughout] 04/22/22 04/22/22 04/22/22 22:03 22:08 22:13 Temperature Pulse Rate 81 85 80 Blood Pressure O2 Sat by Pulse 100 99 99 Oximetry O2 Sat by Pulse Oximetry [ Bilateral Throughout] 04/22/22 04/22/22 04/22/22 22:18 22:23 22:28 Temperature Pulse Rate 83 80 83 Blood Pressure O2 Sat by Pulse 98 99 99 Oximetry O2 Sat by Pulse Oximetry [ Bilateral Throughout] 04/22/22 04/22/22 04/22/22 22:29 22:33 22:38 Temperature Pulse Rate 80 80 89 Blood Pressure 111/58 O2 Sat by Pulse 99 100 Oximetry O2 Sat by Pulse Oximetry [ Bilateral Throughout] 04/22/22 04/22/22 04/22/22 22:43 22:48 22:53 Temperature Pulse Rate 77 93 H 91 H Blood Pressure O2 Sat by Pulse 100 100 99 Oximetry O2 Sat by Pulse Oximetry [ Bilateral Throughout] 04/22/22 04/22/22 04/22/22 22:58 23:03 23:08 Temperature Pulse Rate 80 81 78 Blood Pressure 125/76 O2 Sat by Pulse 100 98 99 Oximetry O2 Sat by Pulse Oximetry [ Bilateral Throughout] 04/22/22 04/22/22 04/22/22 23:13 23:18 23:23 Temperature Pulse Rate 80 83 80 Blood Pressure O2 Sat by Pulse 100 100 100 Oximetry O2 Sat by Pulse Oximetry [ Bilateral Throughout] 04/22/22 04/22/22 04/22/22 23:28 23:29 23:33 Temperature Pulse Rate 81 75 85 Blood Pressure 130/72 O2 Sat by Pulse 100 100 Oximetry O2 Sat by Pulse Oximetry [ Bilateral Throughout] 04/22/22 04/22/22 04/22/22 23:38 23:41 23:43 Temperature Pulse Rate 96 H 95 H 83 Blood Pressure O2 Sat by Pulse 98 93 99 Oximetry O2 Sat by Pulse Oximetry [ Bilateral Throughout] 04/22/22 23:48 Temperature Pulse Rate 92 H Blood Pressure O2 Sat by Pulse 97 Oximetry O2 Sat by Pulse Oximetry [ Bilateral Throughout] - Exam Narrative Exam: Dense epidural. Pt can not feel her legs at this time. Cardiovascular: Regular rate Lungs: Normal air movement Abdomen: Present: normal appearance, soft Vulva: both: normal FHR: category 1 Uterine Contraction Monitor Mode: External Cervical Dilatation: 10 Cervical Effacement Percentage: 100 station: 0 Uterine Contraction Pattern: Regular Uterine Tone Measurement Phase: Resting Uterine Contraction Intensity: Moderate Extremities: normal - Labs Labs: Abnormal Labs 04/20/22 15:13 RDW 15.5 H
[2022-04-23] MEDS ORDERED: METHYLERGONOVINE MALEATE 0.2 MG/ML VIAL IM ONE (01:11)
[2022-04-23] MEDS ORDERED: CARBOPROST TROMETHAMINE 250 MCG/1 ML INJ IM ONE (01:11)
--- NOTE | 2022-04-23 01:20 | Procedure Note ---
OB Delivery Note - Delivery Date of Delivery: 04/23/22 [employer] Manager: LAWRENCE PAREDES Estimated blood loss: 300cc - Vaginal Delivery presentation: vertex Delivery position: OA Intrapartum events: none Delivery induction: cervidil Delivery augmentation: pitocin Delivery monitor: external FHT, external uterine Route of delivery: Delivery placenta: spontaneous Delivery cord: 3 umbilical vessels Episiotomy: none Delivery laceration: none Anesthesia: epidural Delivery comments: of viable female . to mother's abdomen for skin to skin. Cord clamped. Cut by FOC. Spontaneous delivery of placenta intact, complete, 3 vessels noted. Some brisk bleeding noted after delivery of placenta. Stopped with Methergine IM and Pitocin. Bleeding after interventions now minimal. Blood loss 300ml. Apgars 8,9. weight 5-15. Sponges and instruments counted with RN x2 and correct X2. Infant and mother left in stable condition in care of RN. - A at 1 minute: 8 at 5 minutes: 9 Infant Gender: Female (5-15, "Torres")
--- NOTE | 2022-04-23 08:07 | Progress Note ---
Assessment and Plan pt doing well, no complaints. H&H ordered for this afternoon. VSSAF - Patient Problems (1) (normal spontaneous vaginal delivery) Current Visit: Yes Status: Acute Plan to address problem: continue pathway Subjective - Subjective Date of service: 04/23/22 Principal diagnosis: day #0, <12hrs post delivery Patient reports: appetite normal, voiding normally, pain well controlled, ambulating normally, no dizzy ambulation, no nauseated [place]: doing well (plans on ) Objective - Vital Signs Latest vital signs: Vital Signs Temp Pulse BP Pulse Ox Pulse Ox 04/23/22 05:08 98.7 F 04/23/22 05:00 72 122/70 04/23/22 04:28 74 99 04/23/22 04:23 71 99 04/23/22 04:18 70 98 04/23/22 04:13 70 97 04/23/22 04:08 72 98 04/23/22 04:03 88 97 04/23/22 04:00 88 93 04/23/22 03:58 81 100 04/23/22 03:53 80 99 04/23/22 03:48 75 99 04/23/22 03:43 86 84 04/23/22 03:38 73 98 04/23/22 03:33 75 100 04/23/22 03:28 74 95 04/23/22 03:23 73 98 04/23/22 03:18 75 99 04/23/22 03:13 82 99 04/23/22 03:08 90 99 04/23/22 03:03 91 H 99 04/23/22 02:58 93 H 100 04/23/22 02:53 87 99 04/23/22 02:48 105 H 98 04/23/22 02:43 102 H 99 04/23/22 02:41 99 H 91 04/23/22 02:38 79 99 04/23/22 02:33 80 99 04/23/22 02:28 84 99 04/23/22 02:23 79 100 04/23/22 02:18 78 98 04/23/22 02:13 66 88 04/23/22 02:08 80 99 04/23/22 02:03 86 99 04/23/22 01:58 91 H 100 04/23/22 01:53 82 100 04/23/22 01:48 96 H 100 04/23/22 01:43 92 H 99 04/23/22 01:38 88 99 04/23/22 01:33 100 H 99 04/23/22 01:29 100 H 117/75 04/23/22 01:28 100 H 99 04/23/22 01:23 96 H 100 04/23/22 01:18 102 H 100 04/23/22 01:13 95 H 100 04/23/22 01:11 98.3 F 90 128/69 04/23/22 01:08 89 99 04/23/22 01:03 92 H 100 04/23/22 00:59 92 H 136/69 04/23/22 00:58 91 H 100 04/23/22 00:53 89 99 04/23/22 00:48 84 99 04/23/22 00:46 61 82 L 04/23/22 00:43 93 H 99 04/23/22 00:38 89 100 04/23/22 00:37 54 L 92 04/23/22 00:33 96 H 98 04/23/22 00:32 71 L 04/23/22 00:29 99 H 149/87 04/23/22 00:28 79 100 04/23/22 00:23 75 76 L 04/23/22 00:18 91 H 99 04/23/22 00:17 87 82 L 04/23/22 00:13 78 99 04/23/22 00:08 75 99 04/23/22 00:03 88 99 04/22/22 23:58 87 118/74 100 04/22/22 23:53 84 100 04/22/22 23:48 92 H 97 04/22/22 23:45 97.3 F L 04/22/22 23:43 83 99 04/22/22 23:41 95 H 93 04/22/22 23:38 96 H 98 04/22/22 23:33 85 100 04/22/22 23:29 75 130/72 04/22/22 23:28 81 100 04/22/22 23:23 80 100 04/22/22 23:18 83 100 04/22/22 23:13 80 100 04/22/22 23:08 78 99 04/22/22 23:03 81 98 04/22/22 22:58 80 125/76 100 04/22/22 22:53 91 H 99 04/22/22 22:48 93 H 100 04/22/22 22:43 77 100 04/22/22 22:38 89 100 04/22/22 22:33 80 99 04/22/22 22:29 80 111/58 04/22/22 22:28 83 99 04/22/22 22:23 80 99 04/22/22 22:18 83 98 04/22/22 22:13 80 99 04/22/22 22:08 85 99 04/22/22 22:03 81 100 04/22/22 22:00 81 119/63 04/22/22 21:58 86 100 04/22/22 21:53 86 99 04/22/22 21:48 88 100 04/22/22 21:43 84 99 04/22/22 21:38 83 99 04/22/22 21:33 84 99 04/22/22 21:28 78 117/56 100 04/22/22 21:26 88 111/63 04/22/22 21:24 83 122/58 04/22/22 21:23 91 H 98 04/22/22 21:20 80 115/59 04/22/22 21:18 78 118/61 100 04/22/22 21:16 210 H 125/60 04/22/22 21:14 88 125/58 04/22/22 21:13 89 100 04/22/22 21:12 100 H 124/69 04/22/22 21:10 83 122/61 04/22/22 21:08 137 H 182/116 100 04/22/22 21:04 142 H 103/57 04/22/22 21:03 85 99 04/22/22 21:02 151 H 100/56 04/22/22 21:00 83 115/68 04/22/22 20:58 83 99 04/22/22 20:54 123/69 04/22/22 20:53 92 H 100 04/22/22 20:52 85 124/66 04/22/22 20:48 86 128/62 100 04/22/22 20:46 88 136/58 04/22/22 20:44 99 H 134/65 04/22/22 20:43 100 H 100 04/22/22 20:42 97 H 140/70 04/22/22 20:40 103 H 140/77 04/22/22 20:39 106 H 148/75 04/22/22 20:38 100 H 100 04/22/22 20:36 89 140/77 04/22/22 20:33 84 99 04/22/22 20:28 87 100 04/22/22 20:23 88 100 04/22/22 20:07 92 H 99 04/22/22 20:02 85 99 04/22/22 19:57 92 H 100 04/22/22 19:52 82 100 04/22/22 19:47 89 100 04/22/22 19:42 87 99 04/22/22 19:37 88 99 04/22/22 19:32 84 100 04/22/22 19:27 89 100 04/22/22 19:22 83 99 04/22/22 19:21 98.4 F 04/22/22 19:17 83 118/61 100 04/22/22 19:10 100 04/22/22 19:02 89 99 04/22/22 18:57 83 100 04/22/22 18:52 88 100 04/22/22 18:47 91 H 100 04/22/22 18:42 82 100 04/22/22 18:37 94 H 100 04/22/22 18:32 90 100 04/22/22 18:27 89 100 04/22/22 18:22 84 100 04/22/22 18:17 91 H 99 04/22/22 18:12 85 99 04/22/22 17:59 87 98 04/22/22 17:54 89 98 04/22/22 17:49 83 100 04/22/22 17:44 90 99 04/22/22 17:39 88 98 04/22/22 17:34 85 98 04/22/22 17:29 87 100 04/22/22 17:24 90 99 04/22/22 17:19 82 99 04/22/22 17:14 94 H 98 04/22/22 17:09 87 100 04/22/22 17:04 89 100 04/22/22 16:59 79 100 04/22/22 16:54 80 99 04/22/22 16:49 93 H 99 04/22/22 16:44 93 H 100 04/22/22 16:39 84 99 04/22/22 16:34 92 H 99 04/22/22 16:29 106 H 99 04/22/22 16:24 92 H 99 04/22/22 16:19 90 98 04/22/22 16:14 95 H 98 04/22/22 16:09 93 H 100 04/22/22 16:08 87 118/77 04/22/22 16:07 98.7 F 04/22/22 16:04 92 H 99 04/22/22 15:59 91 H 100 04/22/22 15:54 96 H 100 04/22/22 15:49 94 H 100 04/22/22 15:44 90 99 04/22/22 15:39 92 H 100 04/22/22 15:34 89 100 04/22/22 15:29 89 100 04/22/22 15:24 91 H 99 04/22/22 15:19 95 H 99 04/22/22 15:14 98 H 99 04/22/22 15:06 89 99 04/22/22 15:01 89 99 04/22/22 14:56 102 H 99 04/22/22 14:51 93 H 100 04/22/22 14:46 91 H 100 04/22/22 14:41 95 H 99 04/22/22 14:36 94 H 99 04/22/22 14:31 92 H 99 04/22/22 14:29 88 118/63 04/22/22 14:26 94 H 100 04/22/22 14:21 95 H 99 04/22/22 14:16 102 H 100 04/22/22 14:11 102 H 100 04/22/22 12:41 100 H 99 04/22/22 12:36 105 H 99 04/22/22 12:31 109 H 99 04/22/22 12:26 94 H 99 04/22/22 12:21 96 H 99 04/22/22 12:16 92 H 98 04/22/22 12:11 99 H 98 04/22/22 12:06 97 H 99 04/22/22 12:01 97 H 99 04/22/22 11:56 94 H 99 04/22/22 11:51 92 H 98 04/22/22 11:46 90 99 04/22/22 11:41 94 H 98 04/22/22 11:36 93 H 98 04/22/22 11:31 95 H 99 04/22/22 11:26 97 H 98 04/22/22 11:21 93 H 98 04/22/22 11:16 99 H 99 04/22/22 11:11 94 H 99 04/22/22 11:06 96 H 100 04/22/22 11:03 96 H 125/76 04/22/22 10:23 92 H 100 04/22/22 10:18 92 H 97 04/22/22 10:13 95 H 98 04/22/22 10:08 92 H 96 04/22/22 10:03 96 H 97 04/22/22 09:58 93 H 97 04/22/22 09:53 89 97 04/22/22 09:48 86 96 04/22/22 09:43 86 96 04/22/22 09:38 86 97 04/22/22 09:33 83 97 04/22/22 09:28 85 97 04/22/22 09:23 90 97 04/22/22 09:18 85 97 04/22/22 09:13 84 97 04/22/22 09:08 90 97 04/22/22 09:03 87 98 04/22/22 08:58 90 99 04/22/22 08:53 93 H 100 04/22/22 08:48 90 04/22/22 08:27 95 H 100 04/22/22 08:22 89 98 04/22/22 08:17 92 H 99 04/22/22 08:12 84 98 04/22/22 08:07 83 97 Intake and Output 04/22/22 04/23/22 04/23/22 23:59 07:59 15:59 Intake Total 43.800 Balance 43.800 Intake: IV 43.800 PITOCin/NS 30 UNIT/500ML 43.800 30 units In 500 ml @ 4 mls/hr IV TITR JENNIFER Rx#: [id number] Other: Estimated Blood Loss 300 - Exam Breasts: Present: normal Cardiovascular: Present: Regular rate Lungs: Present: Normal air movement Abdomen: Present: normal appearance, soft Uterus: Present: normal Extremities: Present: normal
[2022-04-23] MEDS ORDERED: LANOLIN/ZINC/DIMETHICONE (LANSINOH) 7 GM TP PRN ×2 (08:24→09:30)
[2022-04-23] MEDS ORDERED: ACETAMINOPHEN 325 MG TAB PO PRN (08:24)
[2022-04-23] MEDS ORDERED: BENZOCAINE/MENTHOL 20/0.5% TOP SPRAY 56 GM TP PRN (09:00)
[2022-04-23] MEDS ORDERED: WITCH HAZEL/ GLYCERIN PAD TP PRN (09:30)
[2022-04-23] MEDS ORDERED: diphenhydrAMINE 25 MG CAP PO PRN (09:30)
[2022-04-23] MEDS ORDERED: ONDANSETRON 4 MG/2 ML INJ IV PRN (09:30)
[2022-04-23] MEDS ORDERED: miSOPROStol 100 MCG TAB PR PRN (09:30)
[2022-04-23] MEDS ORDERED: HYDROCORTISONE 25 MG RECTAL SUPP PR PRN (09:30)
[2022-04-23] MEDS ORDERED: OXYTOCIN DRIP 30 UNITS/500 ML BAG IV SCH (10:00)
[2022-04-23] MEDS ORDERED: PROMETHAZINE 25 MG RECT SUPP PR PRN (10:00)
[2022-04-23] MEDS ORDERED: ACETAMINOPHEN 500 MG TAB PO PRN (10:00)
[2022-04-23] MEDS ORDERED: PROMETHAZINE 25 MG TAB PO PRN (10:00)
[2022-04-23] MEDS: PRENATAL VIT27-FE FUMARATE-FOLIC ACID VIT TAB PO SCH (12:30)
[2022-04-23] MEDS: DOCUSATE SODIUM 100 MG CAP PO SCH (12:30)
[2022-04-23] MEDS: oxyCODONE /ACETAMINOPHEN 5-325MG TAB PO PRN (12:30)
[2022-04-23 13:23] LABS: Hematocrit 34.1 % (30.3-42.9); Hemoglobin 11.3 gm/dl (10.1-14.3)
[2022-04-23] MEDS: IBUPROFEN 800 MG TAB PO SCH (18:42)
[2022-04-23] MEDS ORDERED: MAGNESIUM HYDROXIDE (MOM) ORAL LIQD UDC PO PRN (22:00)
[2022-04-24] MEDS: IBUPROFEN 800 MG TAB PO SCH ×2 (05:53)
--- NOTE | 2022-04-24 07:12 | Post Anesthesia Evaluation ---
- Post Anesthesia Evaluation Patient Participated: Yes Airway Patent: Yes Stable Respiratory Function: Yes Nausea/Vomiting: No Temp > 96.8F: Yes Pain Manageable: Yes Adequeate Hydration: Yes Anesthesia Complications: No Block Receding Appropriately: Yes Patient on Ventilator: No
[2022-04-24] MEDS: DOCUSATE SODIUM 100 MG CAP PO SCH ×2 (09:39)
[2022-04-24] MEDS: PRENATAL VIT27-FE FUMARATE-FOLIC ACID VIT TAB PO SCH (09:40)
[2022-04-24] MEDS: oxyCODONE /ACETAMINOPHEN 5-325MG TAB PO PRN (09:42)
[2022-04-24] MEDS ORDERED: TETANUS,DIPH,PERTUSS(ACELL) VACCINE 0.5 ML SYRINGE IM ONE (10:00)
--- NOTE | 2022-04-24 12:57 | Discharge Summary ---
Providers - Providers Date of Admission: 04/20/22 08:26 Date of discharge: 04/24/22 Attending physician: DEMARCUS TOBIN Primary care physician: DEMARCUS TOBIN Hospitalization Reason for admission: induction of labor Delivery: Episiotomy: none Laceration: none Other procedures: none complications: none Discharge diagnosis: IUP at term delivered [place] baby: female Hospital course: S: Pt doing well. Ambulating, voiding, and passing flatus. BC: Depo. O: VSS. H/H 11.3/34.1, minimal bleeding. A: 31 y.o. s/p . In good condition . P: Pt to schedule visit in 4-6 wks. Condition at discharge: Good Disposition: 01 HOME / SELF CARE / HOMELESS Plan - Provider Discharge Summary Activity: routine, no sex for 6 weeks, no heavy lifting 4 weeks, no strenuous exercise Diet: routine Instructions: routine Additional instructions: [] Smoking cessation referral if applicable(refer to patient education folder for contact #) [] Refer to [facility] Booklet Call your doctor immediately for: * Fever > 100.5 * Heavy vaginal bleeding ( >1 pad per hour) * Severe persistent headache * Shortness of breath * Reddened, hot, painful area to leg or breast * Drainage or odor from incision. * Keep incision clean and dry at all times and follow doctor's instructions regarding bathing/showering - Follow up plan Follow up: DEMARCUS TOBIN MD [Primary Care Provider] - 7 Days (- Congratulation on the of your baby girl! - Thank you for allowing us to take care of you. - Please schedule your in the office in 4-6 week. - Should you have any questions or concerns after discharge, please do not hesitate to call us at . )
[2022-04-24] MEDS ORDERED: medroxyPROGESTERone ACETATE 150 MG/ML SYRINGE IM NR (17:08)
[2022-04-24 17:44] VITALS: BP 126/73
== END 2022-04-24 18:50 | disposition home or self-care (01) | DRG 775 ==
LOC: LD 08:26 → OB 04-23 08:05
PROVIDERS: ADMIT Obstetrics & Gynecology; ATTEND Obstetrics & Gynecology
PROC: 10E0XZZ Delivery of Products of Conception, External Approach (ICD-10-PCS; principal; 2022-04-23)
PROC: 3E0R3BZ Introduction of Anesthetic Agent into Spinal Canal, Percutaneous Approach (ICD-10-PCS; 2022-04-23)
PROC: 00HU33Z Insertion of Infusion Device into Spinal Canal, Percutaneous Approach (ICD-10-PCS; 2022-04-23)
PROC: 3E0P7VZ Introduction of Hormone into Female Reproductive, Via Natural or Artificial Opening (ICD-10-PCS; 2022-04-23)
PROC: 3E0234Z Introduction of Serum, Toxoid and Vaccine into Muscle, Percutaneous Approach (ICD-10-PCS; 2022-04-24)
DX: O36.5930 Maternal care for other known or suspected poor fetal growth, third trimester, not applicable or unspecified (principal); Z3A.38 38 weeks gestation of pregnancy; F41.9 Anxiety disorder, unspecified; Z20.822 Contact with and (suspected) exposure to COVID-19; Z23 Encounter for immunization; O99.824 Streptococcus B carrier state complicating childbirth; Z37.0 Single live birth; O99.344 Other mental disorders complicating childbirth; F99 Mental disorder, not otherwise specified; O69.81X0 Labor and delivery complicated by cord around neck, without compression, not applicable or unspecified
CPT/HCPCS: 36415; 59200; 85014; 85018; 85027; 86850; 86900; 86901; G0378; J3490; J0290; J0595; J1050; J2210; J2590; J7120; U0003